=== PATIENT | male | born 1995 ===

== ENCOUNTER 2017-10-06 22:25 | Emergency (ER) | payer SELFPAY ==
[2017-10-06] MEDS ORDERED: Sodium Chloride 0.9% 1,000 ML IV ONE (22:50)
--- NOTE | 2017-10-06 22:53 | C.PDOC ---
History Of Present Illness 21 year old male presents to the ER with a complaint of intermittent fever for the past few days, associated with lower back pain and occasional discomfort with urination. Patient reports today he has had a temperature of 102, he has been taking motrin every few hours with no relief. He notes having pain to his lungs and mild nausea but denies vomiting, abdominal pain, diarrhea, cough, sore throat, or URI. Time Seen by Provider: 10/06/17 22:45 Chief Complaint (Nursing): Fever History Per: Patient History/Exam Limitations: no limitations Onset/Duration Of Symptoms: Days, Intermittent Episodes Current Symptoms Are (Timing): Still Present Location Of Pain: Other (Back) Sick Contacts (Context): None Associated Symptoms: Fever, Nausea, Other (Back pain, dysuria, lung pain). denies: Sore Throat, Cough, Nasal Congestion, Vomiting, Diarrhea Ear Symptoms: Bilateral: None Recent travel outside of the [place]: No Past Medical History Reviewed: Historical Data, Nursing Documentation, Vital Signs Vital Signs: Last Vital Signs Temp 101.1 F H 10/06/17 22:28 Pulse 102 H 10/06/17 22:28 Resp 16 10/06/17 22:28 BP 119/74 10/06/17 22:28 Pulse Ox 97 10/06/17 23:14 - Medical History PMH: No Chronic Diseases Family History: States: Unknown Family Hx - Social History Hx Alcohol Use: Yes Hx Substance Use: No Review Of Systems Constitutional: Positive for: Fever ENT: Negative for: Throat Pain Respiratory: Positive for: Other (Lung pain). Negative for: Cough Gastrointestinal: Positive for: Nausea. Negative for: Vomiting, Abdominal Pain , Diarrhea Genitourinary: Positive for: Dysuria Musculoskeletal: Positive for: Back Pain Physical Exam - Physical Exam Appears: Non-toxic Skin: Normal Color, Warm, Dry Head: Atraumatic, Normacephalic Eye(s): bilateral: Normal Inspection Ear(s): Bilateral: Normal Nose: Normal Oral Mucosa: Moist Throat: Normal, No Erythema, No Exudate Neck: Normal, Supple Chest: Symmetrical, No Tenderness Cardiovascular: Rhythm Regular Respiratory: Normal Breath Sounds, No Rales, No Rhonchi, No Wheezing Gastrointestinal/Abdominal: Soft Back: No CVA Tenderness, No Paraspinal Tenderness Extremity: Normal ROM (x4) Neurological/Psych: Oriented x3, Normal Speech ED Course And Treatment - Laboratory Results Result Diagrams: 10/06/17 23:07 10/06/17 23:07 Lab Interpretation: Abnormal (CBC showing elevated monocyte count with normal WBC, Elevated LFTs) O2 Sat by Pulse Oximetry: 97 (room air) Pulse Ox Interpretation: Normal - Radiology CXR: Interpreted by Me CXR Interpretation: Yes: No Acute Disease Progress Note: Blood work, CXR, and urinalysis ordered. IV fluids administered. Reevaluation Time: 23:42 Reassessment Condition: Improved (after IV fluids.) Medical Decision Making Medical Decision Making: Findings consistent with infectious mono. Unable to have results from monospot tonight. Patient advised of possibility of this infection. Advised no contact sports, rest and hydration. Take Ibuprophen for fever. Avoid Tylenol and alcohol. Disposition Counseled Patient/Family Regarding: Studies Performed, Diagnosis, Need For Followup - Disposition Referrals: [facility] [Outside] Disposition: HOME/ ROUTINE Disposition Time: 23:45 Condition: STABLE Instructions: Mononucleosis (DC) Forms: [employer] (Maltese) Print Language: ECUADOREAN - Clinical Impression Clinical Impression: Fever, Systemic viral illness - Scribe Statement The provider has reviewed the documentation as recorded by the Scribe Scar Stephens All medical record entries made by the Scribe were at my direction and personally dictated by me. I have reviewed the chart and agree that the record accurately reflects my personal performance of the history, physical exam, medical decision making, and the department course for this patient. I have also personally directed, reviewed, and agree with the discharge instructions and disposition.
[2017-10-06 23:14] LABS: BASO % 0.5 % (0.0-2.0); EOS % 0.3 % (0.0-4.0); HEMOGLOBIN 14.9 g/dL (12.0-18.0); LYMPH % 16.7 % (20.0-40.0); MEAN CELL VOLUME 83.5 fL (80.0-94.0); MEAN CORPUSCULAR HGB CONC 34.7 g/dL (33.0-37.0); MEAN PLATELET VOLUME 9.3 fL (7.2-11.7); MONO # 0.6 K/uL (0.0-0.8); MONO % 10.2 % (0.0-10.0); NEUT # 4.1 K/uL (1.8-7.0); NEUT % 72.3 % (50.0-75.0); RBC 5.13 Mil/uL (4.40-5.90); RED CELL DISTRIBUTION WIDTH 13.4 % (11.5-14.5); WHITE BLOOD COUNT 5.7 K/uL (4.8-10.8)
[2017-10-06 23:22] LABS: ALB/GLOB RATIO 1.1 (1.0-2.1); ALBUMIN 4.1 g/dL (3.5-5.0); ALT/SGPT 208 U/L (21-72); AST/SGOT 239 U/L (17-59); BLOOD UREA NITROGEN 14 mg/dL (9-20); CALCIUM 8.9 mg/dl (8.6-10.4); GFR AFRICAN-AMERICAN > 60; GFR NON-AFRICAN AMERICAN > 60
[2017-10-06 23:28] LABS: URINE BACTERIA OCC (<OCC); URINE BILIRUBIN NEGATIVE (NEGATIVE); URINE BLOOD NEGATIVE (NEGATIVE); URINE CLARITY Clear (Clear); URINE COLOR Amber (YELLOW); URINE GLUCOSE (UA) NORMAL (Normal); URINE LEUKOCYTE ESTERASE NEG Leu/uL (Negative); URINE PROTEIN 1+ mg/dL (NEGATIVE)
[2017-10-06 23:58] VITALS: BP 112/72; PULSE 91; RESP 17; TEMP 98.4; O2SAT 98
--- NOTE | 2017-10-07 10:34 | RAD ---
HISTORY: SOB COMPARISON: No prior. TECHNIQUE: Chest PA and lateral FINDINGS: LUNGS: No active pulmonary disease. PLEURA: No significant pleural effusion identified. No pneumothorax apparent. CARDIOVASCULAR: Normal. OSSEOUS STRUCTURES: No significant abnormalities. VISUALIZED UPPER ABDOMEN: Normal. OTHER FINDINGS: None. IMPRESSION: No active disease.
== END 2017-10-06 23:57 | disposition home or self-care (01) ==
LOC: C.ER 22:25
DX: B34.9 Viral infection, unspecified (principal); R50.9 Fever, unspecified
CPT/HCPCS: 71046; 80053; 81001; 85025; 86308; 87040; 87086; 96360; 99283; J7030